=== PATIENT | female | born 1970 | race Caucasian/White ===

== ENCOUNTER 2023-07-02 13:35 | Observation (INO) | payer OTHER ==
[2023-07-02] MEDS ORDERED: Acetaminophen 500 MG TAB ONE (14:15)
[2023-07-02 14:58] LABS: Analyzer IN Cardio CS ER; Base Excess 1.5 mEq/L (-2 - +2); Calcium, Ionized (venous) 1.06 mmol/L (1.16-1.32); Chloride (VBG) 98 mmol/L (98-106); Hematocrit-VBG 39 % (36.0-47.0); Hemoglobin (Hb) 13.2 g/dL (11.7-16.0); Potassium (VBG) 3.64 mmol/L (3.70-5.30); Puncture Site Other Site; RapidComm Collect By CBN; Sodium 135 mmol/L (133-146); pH (venous) 7.386 (7.32-7.43)
[2023-07-02] MEDS ORDERED: Ipratropium/Albuterol 3 ML NEB ONE (15:01)
[2023-07-02] MEDS ORDERED: Albuterol 2.5 MG (0.5 mL) NEB ONE (15:03)
[2023-07-02 15:04] LABS: SARS-CoV-2 NAA Rapid Test Not Detected (NotDetected)
[2023-07-02 15:08] LABS: #Monocytes 1.1 10x3/uL (0.0-1.1); #Neutrophils 6.3 10x3/uL (1.5-8.4); %Basophils 0.2 % (0.0-2.0); %Lymphocytes 10.8 % (18.0-47.0); %Monocytes 12.8 % (0.0-10.0); %Neutrophils 75.5 % (40.0-75.0); Hematocrit 35.6 % (34.9-44.5); Mean Corpuscular HGB CONC 33.7 g/dL (32.0-36.0); Mean Corpuscular Hemoglobin 29.7 pg (27.0-33.0); Mean Corpuscular Volume 88.1 fl (81.6-98.3); Mean Platelet Volume 9.9 fl (7.4-10.4); Platelet Count 166 10x3/uL (150-450); RBC Distribution Width 14.1 % (11.5-14.5); Red Blood Cell (RBC) Count 4.04 10x6/uL (3.90-5.03); White Blood Cell (WBC) Count 8.3 10x3/uL (3.5-10.5)
[2023-07-02 15:25] LABS: ALT (SGPT) 20 U/L (8-55); AST (SGOT) 25 U/L (5-34); Albumin 3.7 g/dL (3.5-5.0); Alkaline Phosphatase 89 U/L (40-110); Anion Gap 11 mmol/L (10-20); BUN (Urea Nitrogen) 7 mg/dL (9.8-20.1); Bilirubin, Total 0.2 mg/dL (0.2-1.2); Calc. Creatinine Clearance 0 mL/min (70-130); Calcium 7.9 mg/dL (7.8-10.44); Carbon Dioxide 28 mmol/L (22-29); Chloride 100 mmol/L (98-107); Estimated GFR 107; Globulin 2.2 g/dL (2.4-3.5); Glucose 125 mg/dL (70-105); Potassium 3.8 mmol/L (3.5-5.1); Protein, Total 5.9 g/dL (6.0-8.3); Sodium 135 mmol/L (136-145)
[2023-07-02 15:31] LABS: Troponin I 0.024 ng/mL (< 0.028)
[2023-07-02] MEDS ORDERED: Guaifenesin DM 100-10/5 ML UDCUP PO PRN (16:39)
[2023-07-02] MEDS ORDERED: Senokot S 8.6-50 MG TAB PO PRN (16:39)
[2023-07-02] MEDS ORDERED: Calcium Carbonate 500 MG ChewTAB PO PRN (16:39)
[2023-07-02] MEDS ORDERED: Ondansetron ODT 4 MG TAB PO PRN (16:39)
[2023-07-02] MEDS ORDERED: Ondansetron PF 4 MG/2 ML Vial IVP PRN (16:39)
[2023-07-02] MEDS ORDERED: Benzonatate 100 MG CAP PO PRN (16:43)
[2023-07-02] MEDS ORDERED: traMADol HCl 50 MG TAB PO PRN (18:00)
[2023-07-02] MEDS ORDERED: methylPREDNISolone Sod Succ/PF 125 MG/2 ML VIAL IVP SCH (18:45)
[2023-07-02] MEDS ORDERED: Arformoterol 15 MCG/2 ML NEB NEB SCH (18:45)
[2023-07-02] MEDS ORDERED: traMADol HCl 50 MG TAB PO SCH (19:15)
[2023-07-02] MEDS ORDERED: traMADol HCl 50 MG TAB ONE (19:22)
[2023-07-02] MEDS ORDERED: methylPREDNISolone Sod Succ/PF 125 MG/2 ML VIAL ONE (19:22)
[2023-07-02] MEDS: Sodium Chloride 0.9% 1,000 ML IV SCH (19:29)
[2023-07-02 20:15] VITALS: BMI 43.0
[2023-07-02] MEDS ORDERED: Oseltamivir 75 MG CAP PO SCH (21:00)
[2023-07-02] MEDS: Acetaminophen 325 MG TAB PO PRN (21:22)
[2023-07-03 05:34] LABS: ALT (SGPT) 16 U/L (8-55); AST (SGOT) 24 U/L (5-34); Albumin 3.8 g/dL (3.5-5.0); Alkaline Phosphatase 89 U/L (40-110); Anion Gap 11 mmol/L (10-20); BUN (Urea Nitrogen) 6 mg/dL (9.8-20.1); Bilirubin, Total 0.2 mg/dL (0.2-1.2); Calc. Creatinine Clearance 176 mL/min (70-130); Calcium 8.5 mg/dL (7.8-10.44); Carbon Dioxide 31 mmol/L (22-29); Chloride 102 mmol/L (98-107); Estimated GFR 105; Globulin 2.8 g/dL (2.4-3.5); Glucose 214 mg/dL (70-105); Protein, Total 6.6 g/dL (6.0-8.3); Sodium 140 mmol/L (136-145)
[2023-07-03 05:36] LABS: #Monocytes 0.2 10x3/uL (0.0-1.1); %Basophils 0.1 % (0.0-2.0); %Lymphocytes 8.7 % (18.0-47.0); %Monocytes 2.6 % (0.0-10.0); %Neutrophils 87.8 % (40.0-75.0); Hematocrit 39.4 % (34.9-44.5); Hemoglobin 13.4 g/dL (12.0-15.5); Mean Corpuscular Hemoglobin 30.5 pg (27.0-33.0); Mean Corpuscular Volume 89.7 fl (81.6-98.3); Mean Platelet Volume 10.5 fl (7.4-10.4); Platelet Count 171 10x3/uL (150-450); RBC Distribution Width 13.9 % (11.5-14.5); Red Blood Cell (RBC) Count 4.39 10x6/uL (3.90-5.03)
[2023-07-03] MEDS: Sodium Chloride 0.9% 1,000 ML IV SCH (06:18)
[2023-07-03] MEDS: Arformoterol 15 MCG/2 ML NEB NEB SCH ×2 (07:06→19:53)
[2023-07-03] MEDS: FLUoxetine HCl 20 MG CAP PO SCH (09:05)
[2023-07-03] MEDS: Isosorbide Mononitrate 30 MG ER.TAB PO SCH (09:05)
[2023-07-03] MEDS: Lisinopril 5 MG TAB PO SCH (09:06)
[2023-07-03] MEDS: Acetaminophen 325 MG TAB PO PRN (09:06)
[2023-07-03] MEDS: Rosuvastatin 20 MG TAB PO SCH (09:06)
[2023-07-03] MEDS: Aspirin 81 mg Enteric Coated Tablet PO SCH (09:07)
[2023-07-03] MEDS: predniSONE 20 MG TAB PO SCH (09:07)
[2023-07-03] MEDS: Enoxaparin 40 MG (0.4 mL) SYRINGE SC SCH (09:07)
[2023-07-03] MEDS: Oseltamivir 75 MG CAP PO SCH ×2 (10:10→20:11)
[2023-07-03] MEDS ORDERED: Dextrose 5% in Water 1,000 ML IV PRN (10:27)
[2023-07-03] MEDS ORDERED: Glucagon 1 MG/ML KIT IM PRN (10:27)
[2023-07-03] MEDS ORDERED: Dextrose 50% Abboject 50 ML SYRINGE SLOW IVP PRN (10:27)
[2023-07-03] MEDS ORDERED: HumaLOG 300 UNITS/3 ML VIAL SC PRN ×2 (10:27)
[2023-07-04] MEDS: Arformoterol 15 MCG/2 ML NEB NEB SCH (07:05)
[2023-07-04] MEDS: Enoxaparin 40 MG (0.4 mL) SYRINGE SC SCH (09:03)
[2023-07-04] MEDS: Oseltamivir 75 MG CAP PO SCH (09:04)
[2023-07-04] MEDS: predniSONE 20 MG TAB PO SCH (09:04)
[2023-07-04] MEDS: FLUoxetine HCl 20 MG CAP PO SCH (09:04)
[2023-07-04] MEDS: Rosuvastatin 20 MG TAB PO SCH (09:04)
[2023-07-04] MEDS: Lisinopril 5 MG TAB PO SCH (09:04)
[2023-07-04] MEDS: Isosorbide Mononitrate 30 MG ER.TAB PO SCH (09:05)
[2023-07-04] MEDS: Aspirin 81 mg Enteric Coated Tablet PO SCH (09:05)
[2023-07-04 12:27] VITALS: BP 117/59; TEMP 98.3
== END 2023-07-04 13:51 | disposition home or self-care (01) ==
LOC: CSHERS 13:35 → SUATTDRO 13:35 → CSHERHOLD 16:27 → CSHTELE 20:41
PROVIDERS: ADMIT Internal Medicine; ATTEND Internal Medicine
DX: J96.01 Acute respiratory failure with hypoxia (principal); J44.1 Chronic obstructive pulmonary disease with (acute) exacerbation; J10.1 Influenza due to other identified influenza virus with other respiratory manifestations; I10 Essential (primary) hypertension; I25.10 Atherosclerotic heart disease of native coronary artery without angina pectoris; E11.9 Type 2 diabetes mellitus without complications; E78.5 Hyperlipidemia, unspecified; E66.01 Morbid (severe) obesity due to excess calories; Z68.41 Body mass index [BMI] 40.0-44.9, adult; F17.210 Nicotine dependence, cigarettes, uncomplicated; Z88.5 Allergy status to narcotic agent; Z88.8 Allergy status to other drugs, medicaments and biological substances; Z79.82 Long term (current) use of aspirin; Z79.899 Other long term (current) drug therapy
CPT/HCPCS: 36415; 36416; 71045; 80053; 82805; 83880; 84145; 84484; 85025; 93005; 94640; 94760; 96372; G0378; J1650; J2930; J7050; J7512; J7611; J7620